=== PATIENT | female | born 1935 | race Caucasian/White ===

== ENCOUNTER 2017-05-12 18:04 | Inpatient (IN) | payer MEDICARE, BC ==
[2017-05-12] MEDS ORDERED: SODIUM CHLORIDE 0.9% 1,000 ML IV STA ×2 (18:24→18:54)
--- NOTE | 2017-05-12 18:30 | ED ---
SOB HPI - General Chief Complaint: Shortness of Breath Stated Complaint: diff breathing Time Seen by Provider: 05/12/17 18:14 Source: patient, family, RN notes reviewed, old records reviewed Mode of arrival: wheelchair Limitations: no limitations - History of Present Illness Initial Comments: This is an 82-year-old female presenting to the emergency Department chief complaint of worsening shortness of breath over the past week. Patient was recently discharged from due to acute exacerbation of heart failure. Patient reports that she was in the hospital for a few days and then back home. Patient's son reports that he wished that she would've went to a rehab. Patient reports that her feet have been swelling immensely, and has to be sitting upright at all times when she feels like she is drowning. Patient's son reports that her ejection fraction is approximately 20-15%, he is unsure. Patient has a history of diabetes, heart failure, COPD. 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 She is on Coumadin. Patient reports that she has been taking her medications as directed. - Related Data Home Medications Medication Instructions Recorded Confirmed Amiodarone [Cordarone] 200 mg PO Q12H 05/12/17 05/12/17 Docusate [Colace] 100 mg PO BID 05/12/17 05/12/17 Fluticasone/Vilanterol [Breo 1 puff INHALATION RT-DAILY 05/12/17 05/12/17 Ellipta 200-25 Mcg INH] Furosemide [Lasix] 60 mg PO BID 05/12/17 05/12/17 Insulin Glargine,Hum.rec.anlog 16 unit SQ 05/12/17 05/12/17 [Lantus Solostar] Insulin Lispro [humaLOG Kwikpen] See Protocol SQ AC-TID 05/12/17 05/12/17 Insulin Lispro [humaLOG Kwikpen] See Protocol SQ 05/12/17 05/12/17 Levothyroxine Sodium [Synthroid] 50 mcg PO DAILY 05/12/17 05/12/17 Losartan [Cozaar] 12.5 mg PO HS 05/12/17 05/12/17 PARoxetine [Paxil] 20 mg PO DAILY 05/12/17 05/12/17 Warfarin [Coumadin] 2.5 mg PO DAILY 05/12/17 05/12/17 Allergies Allergy/AdvReac Type Severity Reaction Status Date / Time No Known Allergies Allergy Verified 05/12/17 18:34 Review of Systems ROS Statement: Those systems with pertinent positive or pertinent negative responses have been documented in the HPI. ROS Other: All systems not noted in ROS Statement are negative. Past Medical History Past Medical History: Diabetes Mellitus Additional Past Medical History / Comment(s): CHF History of Any Multi-Drug Resistant Organisms: None Reported Past Surgical History: Orthopedic Surgery Past Psychological History: Anxiety Smoking Status: Never smoker Past Alcohol Use History: None Reported Past Drug Use History: None Reported General Exam - General Exam Comments Initial Comments: This is a frail 82-year-old female. Patient is alert and oriented 3. Limitations: no limitations General appearance: alert, in no apparent distress Head exam: Present: atraumatic, normocephalic, normal inspection Eye exam: Present: normal appearance, PERRL, EOMI. Absent: scleral icterus, conjunctival injection, periorbital swelling ENT exam: Present: normal exam, mucous membranes moist Neck exam: Present: normal inspection. Absent: tenderness, meningismus, lymphadenopathy Respiratory exam: Present: rales, decreased breath sounds. Absent: normal lung sounds bilaterally, respiratory distress, wheezes, rhonchi, stridor Cardiovascular Exam: Present: regular rate, normal rhythm, normal heart sounds. Absent: systolic murmur, diastolic murmur, rubs, gallop, clicks GI/Abdominal exam: Present: soft, normal bowel sounds. Absent: distended, tenderness, guarding, rebound, rigid Extremities exam: Present: normal inspection, full ROM, normal capillary refill , pedal edema (Patient has 4+ pedal edema bilaterally.). Absent: tenderness, joint swelling, calf tenderness Back exam: Present: normal inspection Neurological exam: Present: alert, oriented X3, CN II-XII intact Psychiatric exam: Present: normal affect, normal mood Skin exam: Present: warm, dry, intact, normal color. Absent: rash Course Vital Signs 05/12/17 05/12/17 05/12/17 18:07 19:16 20:58 Temperature 97.0 F L 98.9 F Pulse Rate 113 H 96 109 H Respiratory 18 19 20 Rate Blood Pressure 133/77 114/74 106/68 O2 Sat by Pulse 89 L 98 Oximetry Medical Decision Making - Medical Decision Making This is an 82-year-old female presenting to the emergency Department chief complaint of worsening shortness of breath over the past week. Patient was recently discharged from due to acute exacerbation of heart failure. Patient reports that she was in the hospital for a few days and then back home. Patient's son reports that he wished that she would've went to a rehab. Patient reports that her feet have been swelling immensely, and has to be sitting upright at all times when she feels like she is drowning. Patient has diminished lung sounds bilaterally. No significant wheezing is noted but there are some rales. Patient received IV fluids, chest x-ray EKG. EKG reveals a history of fibrillation with RVR. Patient states that she sees Dr. Juliette Valverde at [facility]. All of her tests have been done within the past few weeks and records are with him. Patient labwork was obtained at this time. Patient is supratherapeutic with her INR being 4.5. Patient shows evidence of dehydration with sodium of 128, BUN and creatinine are elevated. Patient's BNP is elevated at 12,600. Also noted leukocytosis of 14.6. Lactic acid was obtained and is 3.5. However do not want to overload the patient with fluid due to the significant heart failure. Patient was started at 50 miles per hour of normal saline. Patient was started on Lasix and Nitropaste. Her chest x-ray now shows heart failure but some signs of pneumonia. Patient was started on vancomycin, Zosyn and patient was given an initial dose of azithromycin IV. Discussed all these findings with the family and patient. Patient will be admitted. Family states that they do want her previous history obtained from her trumpet teacher. Discussed that I will not be able to get hold of them in their office this evening. They did provide a cell phone number and work number. Patient's trumpet teacher information is Dr. Lane, work number is [phone]. - Lab Data Result diagrams: 05/12/17 18:30 05/12/17 18:30 Lab Results 05/12/17 05/12/17 05/12/17 Range/Units 18:30 18:30 18:30 WBC 14.6 H (3.8-10.6) k/uL RBC 5.35 (3.80-5.40) m/uL Hgb 14.6 (11.4-16.0) gm/dL Hct 46.5 H (34.0-46.0) % MCV 86.8 (80.0-100.0) fL MCH 27.3 (25.0-35.0) pg MCHC 31.4 (31.0-37.0) g/dL RDW 15.2 (11.5-15.5) % Plt Count 200 (150-450) k/uL Neutrophils % 85 % Lymphocytes % 8 % Monocytes % 4 % Eosinophils % 0 % Basophils % 0 % Neutrophils # 12.5 H (1.3-7.7) k/uL Lymphocytes # 1.2 (1.0-4.8) k/uL Monocytes # 0.6 (0-1.0) k/uL Eosinophils # 0.0 (0-0.7) k/uL Basophils # 0.0 (0-0.2) k/uL Hypochromasia Moderate PT (9.0-12.0) sec INR (<1.2) APTT (22.0-30.0) sec Sodium 128 L (137-145) mmol/L Potassium 5.3 H (3.5-5.1) mmol/L Chloride 90 L (98-107) mmol/L Carbon Dioxide 20 L (22-30) mmol/L Anion Gap 18 mmol/L BUN 33 H (7-17) mg/dL Creatinine 1.31 H (0.52-1.04) mg/dL Est GFR (MDRD) Af Amer 47 (>60 ml/min/1.73 sqM) Est GFR (MDRD) Non-Af 39 (>60 ml/min/1.73 sqM) Glucose 273 H (74-99) mg/dL Plasma Lactic Acid Jay (0.7-2.0) mmol/L Calcium 8.9 (8.4-10.2) mg/dL Total Bilirubin 1.4 H (0.2-1.3) mg/dL AST 128 H (14-36) U/L ALT 138 H (9-52) U/L Alkaline Phosphatase 187 H (38-126) U/L Total Creatine Kinase 28 L (30-135) U/L CK-MB (CK-2) 1.8 (0.0-2.4) ng/mL CK-MB (CK-2) Rel Index 6.4 Troponin I 0.019 (0.000-0.034) ng/mL NT-Pro-B Natriuret Pep pg/mL Total Protein 7.2 (6.3-8.2) g/dL Albumin 3.5 (3.5-5.0) g/dL 05/12/17 05/12/17 05/12/17 Range/Units 18:30 18:30 19:35 WBC (3.8-10.6) k/uL RBC (3.80-5.40) m/uL Hgb (11.4-16.0) gm/dL Hct (34.0-46.0) % MCV (80.0-100.0) fL MCH (25.0-35.0) pg MCHC (31.0-37.0) g/dL RDW (11.5-15.5) % Plt Count (150-450) k/uL Neutrophils % % Lymphocytes % % Monocytes % % Eosinophils % % Basophils % % Neutrophils # (1.3-7.7) k/uL Lymphocytes # (1.0-4.8) k/uL Monocytes # (0-1.0) k/uL Eosinophils # (0-0.7) k/uL Basophils # (0-0.2) k/uL Hypochromasia PT 44.7 H (9.0-12.0) sec INR 4.5 H (<1.2) APTT 31.5 H (22.0-30.0) sec Sodium (137-145) mmol/L Potassium (3.5-5.1) mmol/L Chloride (98-107) mmol/L Carbon Dioxide (22-30) mmol/L Anion Gap mmol/L BUN (7-17) mg/dL Creatinine (0.52-1.04) mg/dL Est GFR (MDRD) Af Amer (>60 ml/min/1.73 sqM) Est GFR (MDRD) Non-Af (>60 ml/min/1.73 sqM) Glucose (74-99) mg/dL Plasma Lactic Acid Jay 3.7 H* (0.7-2.0) mmol/L Calcium (8.4-10.2) mg/dL Total Bilirubin (0.2-1.3) mg/dL AST (14-36) U/L ALT (9-52) U/L Alkaline Phosphatase (38-126) U/L Total Creatine Kinase (30-135) U/L CK-MB (CK-2) (0.0-2.4) ng/mL CK-MB (CK-2) Rel Index Troponin I (0.000-0.034) ng/mL NT-Pro-B Natriuret Pep 57883 pg/mL Total Protein (6.3-8.2) g/dL Albumin (3.5-5.0) g/dL 05/12/17 20:03 EKG shows A. fib with RVR. Nonspecific intraventricular block. Ventricular rate of 113 bpm. She restrict him 170 ms. QT QTc is 12/01/1929/589 ms. - Radiology Data Radiology results: report reviewed Small bilateral pleural effusions are noted to moderate to mild CHF. There is patchy opacity in the mid left lung which could relate to atelectasis or pneumonia. Disposition Clinical Impression: CHF (congestive heart failure), Pneumonia, Coagulopathy, Lactic acidosis, Dehydration Disposition: ADMITTED IP TO THIS [facility] Condition: Good Referrals: Nonstaff,Physician [Primary Care Provider] - 1-2 days Time of Disposition: 21:15
[2017-05-12 18:46] LABS: Basophils % (A) 0 %; CH 27.3; CHCM 31.6; Eosinophils % (A) 0 %; HCT 46.5 % (34.0-46.0); HDW 3.39; HGB 14.6 gm/dL (11.4-16.0); Hypochromasia Moderate; Luc # (Auto) 0.25; Luc % (Auto) 2; Lymphocytes # (A) 1.2 k/uL (1.0-4.8); Lymphocytes % (A) 8 %; MCH 27.3 pg (25.0-35.0); MCHC 31.4 g/dL (31.0-37.0); MCV 86.8 fL (80.0-100.0); Mean Platelet Volume 8.5; Monocytes # (A) 0.6 k/uL (0-1.0); Monocytes % (A) 4 %; Neutrophils # (A) 12.5 k/uL (1.3-7.7); Neutrophils % (A) 85 %; RBC 5.35 m/uL (3.80-5.40); RDW 15.2 % (11.5-15.5); WBC 14.6 k/uL (3.8-10.6); WBC (Perox) 13.99
[2017-05-12 18:53] LABS: Calcium 8.9 mg/dL (8.4-10.2); Potassium 5.3 mmol/L (3.5-5.1); Total Bilirubin 1.4 mg/dL (0.2-1.3); Total Protein 7.2 g/dL (6.3-8.2)
[2017-05-12] MEDS: FUROSEMIDE 10 MG/ML 4 ML VIAL IV STA (19:01)
[2017-05-12 19:02] LABS: INR 4.5 (<1.2); Partial Thromboplastin Time 31.5 sec (22.0-30.0); Prothrombin Time 44.7 sec (9.0-12.0)
--- NOTE | 2017-05-12 19:06 | XR ---
EXAMINATION TYPE: XR chest 2V DATE OF EXAM: 05/12/2017 COMPARISON: NONE HISTORY: Shortness of breath. TECHNIQUE: Frontal and lateral views of the chest are obtained. FINDINGS: There are small bilateral pleural effusions. There is dependent atelectasis. There is a pa tchy opacity at the mid left lung which could be related atelectasis or pneumonia. There is mild to m oderate pulmonary vascular congestion. Fluid is noted in the minor fissure. The cardiac silhouette is mildly enlarged. There is no pneumothorax. IMPRESSION: Small bilateral pleural effusions are noted with [id number] CHF.
[2017-05-12 19:08] LABS: Creatine Kinase MB 1.8 ng/mL (0.0-2.4); Troponin I 0.019 ng/mL (0.000-0.034)
[2017-05-12] MEDS ORDERED: NITROGLYCERIN OINT 1 INCH/GM PACKET TOPICAL STA (19:27)
[2017-05-12] MEDS ORDERED: IPRATROPIUM-ALBUTEROL 3 ML NEB INHALATION PRN (20:10)
[2017-05-12] MEDS ORDERED: AZITHROMYCIN 500 MG in SODIUM CHLORIDE 0.9% 250 ML IVPB STA (20:10)
[2017-05-12] MEDS ORDERED: PNEUMONIA PROTOCOL UTILIZED 1 EACH MISC PO PRN (20:10)
[2017-05-12] MEDS ORDERED: IV VANCOMYCIN PER PHARMACY 1 EACH MISC MISCELLANE PRN (20:14)
[2017-05-12] MEDS ORDERED: VANCOMYCIN 1,250 MG in SODIUM CHLORIDE 0.9% 250 ML IVPB STA (20:42)
[2017-05-12 23:22] LABS: Glucose,Whole Blood 212 mg/dL (75-99)
[2017-05-13] MEDS ORDERED: FUROSEMIDE 40 MG TAB PO SCH
[2017-05-13 00:01] VITALS: BMI 31.3
[2017-05-13] MEDS ORDERED: FUROSEMIDE 10 MG/ML 4 ML VIAL IV STA (00:48)
[2017-05-13] MEDS ORDERED: ALPRAZolam 0.25 MG TAB PO PRN (00:49)
[2017-05-13] MEDS ORDERED: NALOXONE 0.4 MG/ML 1 ML VIAL IV PRN (00:49)
[2017-05-13] MEDS: DOCUSATE 100 MG CAP PO SCH ×3 (01:14→21:25)
[2017-05-13] MEDS: INSULIN GLARGINE 100 UNIT/ML 10 ML VIAL SQ SCH ×2 (01:25→21:23)
[2017-05-13] MEDS: AMIODARONE 200 MG TAB PO SCH ×3 (01:25→22:48)
[2017-05-13] MEDS: PIPERACILLIN-TAZOBACTAM 3.375 GM in DEXTROSE/WATER 1 50ML.BAG IVPB SCH ×3 (01:26→16:10)
[2017-05-13 01:41] LABS: ABG Base Excess -3.7 mmol/L; ABG HCO3 19 mmol/L (21-25); ABG PCO2 24 mmHg (35-45); ABG PH 7.51 (7.35-7.45); ABG PO2 93 mmHg (83-108); ABG TCO2 20 mmol/L (19-24)
[2017-05-13 01:45] LABS: Amorphous Sediment,Urine Rare /hpf; Appearance,Urine Cloudy (Clear); Bacteria,Urine Few /hpf; Bilirubin,Urine Negative (Negative); Glucose,Urine (UA) Negative (Negative); Ketones,Urine Negative (Negative); Leukocyte Esterase,Urine Negative (Negative); Mucus,Urine Rare /hpf; Nitrite,Urine Negative (Negative); Particle Count 23727; Protein,Urine Trace (Negative); Specific Gravity,Urine 1.011 (1.001-1.035); Squamous Epithelial Cell,Urine <1 /hpf (0-4); UA Billing (MACRO vs. MICRO) MICRO; WBC,Urine 2 /hpf (0-5)
[2017-05-13] MEDS: LOSARTAN 25 MG TAB PO SCH ×2 (02:00→21:25)
[2017-05-13 07:04] LABS: INR 3.3 (<1.2); Prothrombin Time 32.5 sec (9.0-12.0)
[2017-05-13 07:21] LABS: Calcium 8.3 mg/dL (8.4-10.2); Magnesium 1.7 mg/dL (1.6-2.3); Phosphorous 4.2 mg/dL (2.5-4.5); Potassium 4.9 mmol/L (3.5-5.1)
[2017-05-13 07:31] LABS: Glucose,Whole Blood 180 mg/dL (75-99)
[2017-05-13] MEDS: FUROSEMIDE 10 MG/ML 4 ML VIAL IV SCH ×2 (07:35→16:10)
[2017-05-13] MEDS: HEPARIN SODIUM,PORCINE 5,000 UNIT/ML 1 ML VIAL SQ SCH ×2 (07:35→16:10)
[2017-05-13] MEDS: LEVOTHYROXINE 50 MCG TAB PO SCH (07:35)
--- NOTE | 2017-05-13 07:48 | XR ---
EXAMINATION TYPE: XR chest 1V DATE OF EXAM: 05/13/2017 COMPARISON: Prior chest x-ray 05/12/2017 HISTORY: Shortness of breath TECHNIQUE: Single frontal view of the chest is obtained. FINDINGS: There is mixed interstitial and airspace disease present within the lungs. No evident pneu mothorax. Blunting of the right costophrenic angle persists and heart is enlarged. Arthropathy noted in the left shoulder. IMPRESSION: Correlate for congestive heart failure.
[2017-05-13] MEDS: SYMBICORT 160-4.5 MCG INHALER INHALATION SCH (08:00)
--- NOTE | 2017-05-13 08:55 | P.CRDCN ---
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 who just was discharged from [facility] recently after she was admitted with congestive heart failure presented to the hospital complaining of progressive dyspnea. The patient describes progressive exertional dyspnea associated with severe bilateral lower extremities edema. She did not have any chest pain or discomfort. Did not have any cough or wheezing. The patient is not aware of any prior history of CAD or prior revascularization but she is known to have CHF as well as diabetes and COPD. The chest x-ray showed findings consistent with CHF. The BNP came in to be 12, 000. The EKG showed underlying atrial fibrillation which is known to the patient with wide complex QRS consistent with nonspecific interventricular conduction delay. Currently the patient is on Lasix IV. I'm going to continue that. Continue monitoring the kidney function and electrolytes. I'll obtain an echocardiogram was Doppler. And continue following up with the patient. Past Medical History Past Medical History: Atrial Fibrillation, Heart Failure, COPD, Diabetes Mellitus, Pneumonia Additional Past Medical History / Comment(s): CHF History of Any Multi-Drug Resistant Organisms: None Reported Past Surgical History: Orthopedic Surgery Past Anesthesia/Blood Transfusion Reactions: No Reported Reaction Past Psychological History: Anxiety Smoking Status: Never smoker Past Alcohol Use History: None Reported Past Drug Use History: None Reported Medications and Allergies Home Medications Medication Instructions Recorded Confirmed Type Amiodarone [Cordarone] 200 mg PO Q12H 05/12/17 05/12/17 History Docusate [Colace] 100 mg PO BID 05/12/17 05/12/17 History Fluticasone/Vilanterol [Breo 1 puff INHALATION RT-DAILY 05/12/17 05/12/17 History Ellipta 200-25 Mcg INH] Furosemide [Lasix] 60 mg PO BID 05/12/17 05/12/17 History Insulin Glargine,Hum.rec.anlog 16 unit SQ HS 05/12/17 05/12/17 History [Lantus Solostar] Insulin Lispro [humaLOG Kwikpen] See Protocol SQ AC-TID 05/12/17 05/12/17 History Insulin Lispro [humaLOG Kwikpen] See Protocol SQ HS 05/12/17 05/12/17 History Levothyroxine Sodium [Synthroid] 50 mcg PO DAILY 05/12/17 05/12/17 History Losartan [Cozaar] 12.5 mg PO HS 05/12/17 05/12/17 History PARoxetine [Paxil] 20 mg PO DAILY 05/12/17 05/12/17 History Warfarin [Coumadin] 2.5 mg PO DAILY 05/12/17 05/12/17 History Allergies Allergy/AdvReac Type Severity Reaction Status Date / Time No Known Allergies Allergy Verified 05/12/17 18:34 Physical Exam Vitals: Vital Signs Temp Pulse Pulse Resp BP BP Pulse Ox 05/13/17 07:30 89 27 H 98 05/13/17 07:00 83 24 103/74 99 05/13/17 06:30 97 25 H 103/74 98 05/13/17 06:00 88 28 H 79/57 97 05/13/17 05:30 91 15 81/58 99 05/13/17 05:00 91 16 94/57 99 05/13/17 04:30 92 21 107/66 97 05/13/17 04:00 97.6 F 99 25 H 103/72 90 L 05/13/17 03:31 25 H 05/13/17 03:00 102 H 24 81/57 98 05/13/17 02:30 98 20 81/57 98 05/13/17 02:00 106 H 30 H 101/60 98 05/13/17 01:30 105 H 25 H 100/79 98 05/13/17 01:00 96 29 H 100/79 97 05/13/17 00:30 107 H 31 H 100/79 98 05/13/17 00:00 100 31 H 100/79 99 05/12/17 23:17 74 100 05/12/17 22:52 97.6 F 105 H 25 H 100/79 98 05/12/17 21:44 98.8 F 108 H 18 95/65 98 05/12/17 20:58 109 H 20 106/68 05/12/17 19:16 98.9 F 96 19 114/74 98 05/12/17 18:07 97.0 F L 113 H 18 133/77 89 L Intake and Output 05/12/17 05/13/17 05/13/17 22:59 06:59 14:59 Intake Total 420.0 32.5 Output Total 290 50 Balance 130.0 -17.5 Intake: IV 420.0 20 Piperacillin-Tazobactam 3 50.0 .375 gm In Dextrose/Water 1 50ml.bag @ 12.5 mls/hr IVPB Q8HR ON LICENSE OF [facility] Rx#: [id number] Sodium Chloride 0.9% 1, 120 20 000 ml @ 20 mls/hr IV . Q24H STA Rx#:[id number] Vancomycin 1,250 mg In 250 Sodium Chloride 0.9% 250 ml @ 125 mls/hr IVPB ONCE STA Rx#:[id number] Intake, IV Titration 12.5 Amount Piperacillin-Tazobactam 3 12.5 .375 gm In Dextrose/Water 1 50ml.bag @ 12.5 mls/hr IVPB Q8HR ON LICENSE OF [facility] Rx#: [id number] Output: Urine 290 50 Other: Voiding Method Indwelling Catheter Weight 65.7 kg - Constitutional General appearance: no acute distress - Respiratory Respiratory: bilateral: diminished, rales - Cardiovascular Rhythm: irregularly irregular Heart sounds: normal: S1, S2 Results 05/12/17 18:30 05/13/17 06:30 Cardiac Enzymes 05/12/17 05/12/17 Range/Units 18:30 18:30 AST 128 H (14-36) U/L CK-MB (CK-2) 1.8 (0.0-2.4) ng/mL Troponin I 0.019 (0.000-0.034) ng/mL Coagulation 05/12/17 05/13/17 Range/Units 18:30 06:30 PT 44.7 H 32.5 H (9.0-12.0) sec APTT 31.5 H (22.0-30.0) sec CBC 05/12/17 Range/Units 18:30 WBC 14.6 H (3.8-10.6) k/uL RBC 5.35 (3.80-5.40) m/uL Hgb 14.6 (11.4-16.0) gm/dL Hct 46.5 H (34.0-46.0) % Plt Count 200 (150-450) k/uL Comprehensive Metabolic Panel 05/12/17 05/13/17 Range/Units 18:30 06:30 Sodium 128 L 128 L (137-145) mmol/L Potassium 5.3 H 4.9 (3.5-5.1) mmol/L Chloride 90 L 96 L (98-107) mmol/L Carbon Dioxide 20 L 20 L (22-30) mmol/L BUN 33 H 37 H (7-17) mg/dL Creatinine 1.31 H 1.26 H (0.52-1.04) mg/dL Glucose 273 H 172 H (74-99) mg/dL Calcium 8.9 8.3 L (8.4-10.2) mg/dL AST 128 H (14-36) U/L ALT 138 H (9-52) U/L Alkaline Phosphatase 187 H (38-126) U/L Total Protein 7.2 (6.3-8.2) g/dL Albumin 3.5 (3.5-5.0) g/dL Current Medications Generic Name Dose Route Start Last Admin Trade Name Freq PRN Reason Stop Dose Admin Albuterol/Ipratropium 3 ml 05/12/17 20:10 Duoneb 0.5 Mg-3 Mg/3 Ml Soln INHALATION RT-Q4H PRN shortness of breath Alprazolam 0.125 mg 05/13/17 00:49 Xanax PO Q6HR PRN Mild Anxiety Amiodarone HCl 200 mg 05/12/17 23:00 05/13/17 01:25 Cordarone PO 200 mg Q12H MALIHA Administration Budesonide/Formoterol Fumarate 2 puff 05/13/17 08:00 Symbicort 160-4.5 Mcg Inhaler INHALATION RT-BID MALIHA Docusate Sodium 100 mg 05/12/17 23:00 05/13/17 01:14 Colace PO Not Given BID MALIHA Famotidine 20 mg 05/13/17 09:00 Pepcid IV Q12HR MALIHA Furosemide 40 mg 05/13/17 08:00 05/13/17 07:35 Lasix IV 40 mg Q8HR MALIHA Administration Heparin Sodium (Porcine) 5,000 unit 05/13/17 08:00 05/13/17 07:35 Heparin SQ 5,000 unit Q8HR MALIHA Administration Sodium Chloride 1,000 mls @ 20 mls/hr 05/12/17 18:54 05/12/17 19:01 Saline 0.9% IV 05/13/17 18:53 20 mls/hr .Q24H STA Administration Piperacillin/Tazobactam/ 50 mls @ 12.5 mls/hr 05/13/17 00:00 05/13/17 07:35 Dextrose 3.375 gm/ IV Solution IVPB 05/23/17 00:01 12.5 mls/hr Q8HR MALIHA Administration Vancomycin HCl 1,250 mg/ 250 mls @ 125 mls/hr 05/13/17 10:00 Sodium Chloride IVPB 05/13/17 11:59 ONCE ONE Insulin Glargine 16 unit 05/12/17 21:00 05/13/17 01:25 Lantus SQ 16 unit HS MALIHA Administration Levothyroxine Sodium 50 mcg 05/13/17 06:30 05/13/17 07:35 Synthroid PO 50 mcg 0630 MALIHA Administration Losartan Potassium 12.5 mg 05/12/17 23:00 05/13/17 02:00 Cozaar PO Not Given HS ON LICENSE OF [facility] Miscellaneous Information 1 each 05/12/17 20:10 Pneumonia Protocol Utilized PO ONCE PRN Per Protocol Miscellaneous Information 1 each 05/12/17 20:14 Pharmacy To Dose Iv Vancomycin MISCELLANE DIRECTED PRN Per Protocol Naloxone HCl 0.2 mg 05/13/17 00:49 Narcan IV Q2M PRN Opioid Reversal Nitroglycerin 0.5 inch 05/13/17 09:00 Nitro-Bid Oint TOPICAL QID MALIHA Paroxetine HCl 20 mg 05/13/17 09:00 Paxil PO DAILY MALIHA Intake and Output 05/12/17 05/13/17 05/13/17 22:59 06:59 14:59 Intake Total 420.0 32.5 Output Total 290 50 Balance 130.0 -17.5 Intake: IV 420.0 20 Piperacillin-Tazobactam 3 50.0 .375 gm In Dextrose/Water 1 50ml.bag @ 12.5 mls/hr IVPB Q8HR MALIHA Rx#: [id number] Sodium Chloride 0.9% 1, 120 20 000 ml @ 20 mls/hr IV . Q24H STA Rx#:[id number] Vancomycin 1,250 mg In 250 Sodium Chloride 0.9% 250 ml @ 125 mls/hr IVPB ONCE STA Rx#:[id number] Intake, IV Titration 12.5 Amount Piperacillin-Tazobactam 3 12.5 .375 gm In Dextrose/Water 1 50ml.bag @ 12.5 mls/hr IVPB Q8HR ON LICENSE OF [facility] Rx#: [id number] Output: Urine 290 50 Other: Voiding Method Indwelling Catheter Weight 65.7 kg 05/12/17 18:30 05/13/17 06:30 Assessment and Plan Plan: This is a pleasant 82-year-old female patient with known CHF, chronic A. fib, and diabetes, presented to the hospital with progressive exertional dyspnea and bilateral lower extremities edema. The examination as well as a workup consistent with CHF. We'll continue the current above dose of Lasix IV. Continue monitor the urine output. Obtain an echocardiogram was Doppler and follow-up with the patient.
[2017-05-13] MEDS ORDERED: FAMOTIDINE 20 MG/2 ML VIAL IV SCH (09:00)
[2017-05-13] MEDS: PARoxetine 20 MG TAB PO SCH (09:53)
[2017-05-13] MEDS: NITROGLYCERIN OINT 1 INCH/GM PACKET TOPICAL SCH ×4 (09:56→21:28)
[2017-05-13] MEDS ORDERED: VANCOMYCIN 1,250 MG in SODIUM CHLORIDE 0.9% 250 ML IVPB ONE (10:00)
[2017-05-13 10:11] LABS: CH 27.5; HCT 40.7 % (34.0-46.0); HDW 3.43; HGB 13.4 gm/dL (11.4-16.0); Hypochromasia Slight; MCH 27.6 pg (25.0-35.0); MCV 83.7 fL (80.0-100.0); Mean Platelet Volume 10.5; Poikilocytosis Slight; RBC 4.87 m/uL (3.80-5.40); RDW 15.2 % (11.5-15.5); WBC 14.7 k/uL (3.8-10.6); WBC (Perox) 15.15
[2017-05-13 10:30] LABS: Add Differential Manual Differential
[2017-05-13 10:31] LABS: Nucleated Red Blood Cells 0 /100 WBC (0-0); Total Cells Counted 100
[2017-05-13 10:35] LABS: Target Cells Present
--- NOTE | 2017-05-13 11:35 | P.CNPUL ---
History of Present Illness Consult date: 05/13/17 Requesting physician: Sherry Szymanski Reason for consult: dyspnea, pleural effusion, other (Congestive heart failure) Chief complaint: Shortness of breath History of present illness: This is an 82-year-old female with history of congestive heart failure and presumptive underlying cardiomyopathy, patient was recently admitted to [facility] with congestive heart failure discharged only couple of days ago. Patient was supposedly compliant with all her meds including diuretics, however she presented to the ER with worsening shortness of breath, dyspnea on exertion, significant swelling in lower extremities, no chest pain, no diaphoresis, no palpitations. Chest x-ray showed evidence of congestive heart failure questionable left lower lobe underlying infiltrate, patient was noted to have significantly elevated BNP level. She was admitted, placed on diuretics , and I was asked to see her on consultation. She was already seen by cardiology, her medications were adjusted, and her echocardiogram is pending at the time of my dictation. Since admission the patient has been feeling better breathing a bit easier. Presently denies headaches, no blurred vision no dizziness. No chest pain, she has some cough, no wheezing, she is complaining of shortness of breath, no nausea no vomiting no abdominal pain no melena no hematemesis. No dysuria frequency or urgency. Patient has been complaining of significant swelling in her lower extremities. Review of Systems 14 point review of systems were obtained, please refer to pertinent positives and negatives as noted in the HPI. Past Medical History Past Medical History: Atrial Fibrillation, Heart Failure, COPD, Diabetes Mellitus, Pneumonia Additional Past Medical History / Comment(s): CHF History of Any Multi-Drug Resistant Organisms: None Reported Past Surgical History: Orthopedic Surgery Past Anesthesia/Blood Transfusion Reactions: No Reported Reaction Past Psychological History: Anxiety Smoking Status: Never smoker Past Alcohol Use History: None Reported Past Drug Use History: None Reported Medications and Allergies Home Medications Medication Instructions Recorded Confirmed Type Amiodarone [Cordarone] 200 mg PO Q12H 05/12/17 05/12/17 History Docusate [Colace] 100 mg PO BID 05/12/17 05/12/17 History Fluticasone/Vilanterol [Breo 1 puff INHALATION RT-DAILY 05/12/17 05/12/17 History Ellipta 200-25 Mcg INH] Furosemide [Lasix] 60 mg PO BID 05/12/17 05/12/17 History Insulin Glargine,Hum.rec.anlog 16 unit SQ HS 05/12/17 05/12/17 History [Lantus Solostar] Insulin Lispro [humaLOG Kwikpen] See Protocol SQ AC-TID 05/12/17 05/12/17 History Insulin Lispro [humaLOG Kwikpen] See Protocol SQ HS 05/12/17 05/12/17 History Levothyroxine Sodium [Synthroid] 50 mcg PO DAILY 05/12/17 05/12/17 History Losartan [Cozaar] 12.5 mg PO HS 05/12/17 05/12/17 History PARoxetine [Paxil] 20 mg PO DAILY 05/12/17 05/12/17 History Warfarin [Coumadin] 2.5 mg PO DAILY 05/12/17 05/12/17 History Allergies Allergy/AdvReac Type Severity Reaction Status Date / Time No Known Allergies Allergy Verified 05/12/17 18:34 Physical Exam Vitals: Vital Signs Temp Pulse Pulse Resp BP BP Pulse Ox 05/13/17 10:00 92 29 H 89/53 96 05/13/17 09:30 90 28 H 96/66 100 05/13/17 09:00 85 15 96/66 99 05/13/17 08:30 87 21 96/66 86 L 05/13/17 08:00 82 25 H 96/66 92 L 05/13/17 07:30 89 27 H 98 05/13/17 07:00 83 24 103/74 99 05/13/17 06:30 97 25 H 103/74 98 05/13/17 06:00 88 28 H 79/57 97 05/13/17 05:30 91 15 81/58 99 05/13/17 05:00 91 16 94/57 99 05/13/17 04:30 92 21 107/66 97 05/13/17 04:00 97.6 F 99 25 H 103/72 90 L 05/13/17 03:31 25 H 05/13/17 03:00 102 H 24 81/57 98 05/13/17 02:30 98 20 81/57 98 05/13/17 02:00 106 H 30 H 101/60 98 05/13/17 01:30 105 H 25 H 100/79 98 05/13/17 01:00 96 29 H 100/79 97 05/13/17 00:30 107 H 31 H 100/79 98 05/13/17 00:00 100 31 H 100/79 99 05/12/17 23:17 74 100 05/12/17 22:52 97.6 F 105 H 25 H 100/79 98 05/12/17 21:44 98.8 F 108 H 18 95/65 98 05/12/17 20:58 109 H 20 106/68 05/12/17 19:16 98.9 F 96 19 114/74 98 05/12/17 18:07 97.0 F L 113 H 18 133/77 89 L Intake and Output 05/12/17 05/13/17 05/13/17 22:59 06:59 14:59 Intake Total 420.0 55.0 Output Total 290 100 Balance 130.0 -45.0 Intake: IV 420.0 30 Piperacillin-Tazobactam 3 50.0 .375 gm In Dextrose/Water 1 50ml.bag @ 12.5 mls/hr IVPB Q8HR MALIHA Rx#: [id number] Sodium Chloride 0.9% 1, 120 30 000 ml @ 20 mls/hr IV . Q24H STA Rx#:[id number] Vancomycin 1,250 mg In 250 Sodium Chloride 0.9% 250 ml @ 125 mls/hr IVPB ONCE STA Rx#:[id number] Intake, IV Titration 25.0 Amount Piperacillin-Tazobactam 3 25.0 .375 gm In Dextrose/Water 1 50ml.bag @ 12.5 mls/hr IVPB Q8HR MALIHA Rx#: [id number] Output: Urine 290 100 Other: Voiding Method Indwelling Catheter Indwelling Catheter Weight 65.7 kg Physical Exam: Revealed an 82-year-old female in no respiratory distress. HEENT:[Neck is supple.] [No neck masses.] [No thyromegaly.] [ The patient JVD.] Chest: [Crackles at the bases noted bilaterally more so at the left base. No wheezes..] Cardiac Exam: [Irregular irregular rhythm, Normal S1 and S2, no S3 gallop, 2/6 systolic murmur throughout the precordium.] Abdomen: [Soft, nontender, no megaly, no rebound, no guarding, normal bowel sounds.] Extremities: [No clubbing, 3+ bipedal edema was noted, no cyanosis.] Neurological Exam: [No focal neurologic deficit.] Results - Laboratory Findings CBC and BMP: 05/13/17 07:06 05/13/17 06:30 ABG ABG pH 7.51 (7.35-7.45) H 05/13/17 01:27 ABG pCO2 24 mmHg (35-45) L 05/13/17 01:27 ABG pO2 93 mmHg (83-108) 05/13/17 01:27 ABG O2 Saturation 98.0 % (94-97) H 05/13/17 01:27 PT/INR, D-dimer PT 32.5 sec (9.0-12.0) H 05/13/17 06:30 INR 3.3 (<1.2) H 05/13/17 06:30 Abnormal lab findings: Abnormal Labs 05/12/17 05/12/17 05/12/17 18:30 18:30 18:30 WBC 14.6 H Hct 46.5 H Plt Count Neutrophils # 12.5 H Neutrophils # (Manual) PT INR APTT ABG pH ABG pCO2 ABG HCO3 ABG O2 Saturation Sodium 128 L Potassium 5.3 H Chloride 90 L Carbon Dioxide 20 L BUN 33 H Creatinine 1.31 H Glucose 273 H POC Glucose (mg/dL) Plasma Lactic Acid Jay Calcium Total Bilirubin 1.4 H AST 128 H ALT 138 H Alkaline Phosphatase 187 H Total Creatine Kinase 28 L Urine Appearance Urine Protein Amorphous Sediment Urine Bacteria Hyaline Casts Urine Mucus 05/12/17 05/12/17 05/12/17 18:30 19:35 23:18 WBC Hct Plt Count Neutrophils # Neutrophils # (Manual) PT 44.7 H INR 4.5 H APTT 31.5 H ABG pH ABG pCO2 ABG HCO3 ABG O2 Saturation Sodium Potassium Chloride Carbon Dioxide BUN Creatinine Glucose POC Glucose (mg/dL) 212 H Plasma Lactic Acid Jay 3.7 H* Calcium Total Bilirubin AST ALT Alkaline Phosphatase Total Creatine Kinase Urine Appearance Urine Protein Amorphous Sediment Urine Bacteria Hyaline Casts Urine Mucus 05/12/17 05/13/17 05/13/17 23:34 01:14 01:27 WBC Hct Plt Count Neutrophils # Neutrophils # (Manual) PT INR APTT ABG pH 7.51 H ABG pCO2 24 L ABG HCO3 19 L ABG O2 Saturation 98.0 H Sodium Potassium Chloride Carbon Dioxide BUN Creatinine Glucose POC Glucose (mg/dL) Plasma Lactic Acid Jay 4.9 H* Calcium Total Bilirubin AST ALT Alkaline Phosphatase Total Creatine Kinase Urine Appearance Cloudy H Urine Protein Trace H Amorphous Sediment Rare H Urine Bacteria Few H Hyaline Casts 50 H Urine Mucus Rare H 05/13/17 05/13/17 05/13/17 06:30 06:30 07:06 WBC 14.7 H Hct Plt Count 135 L Neutrophils # Neutrophils # (Manual) 12.94 H PT 32.5 H INR 3.3 H APTT ABG pH ABG pCO2 ABG HCO3 ABG O2 Saturation Sodium 128 L Potassium Chloride 96 L Carbon Dioxide 20 L BUN 37 H Creatinine 1.26 H Glucose 172 H POC Glucose (mg/dL) Plasma Lactic Acid Jay Calcium 8.3 L Total Bilirubin AST ALT Alkaline Phosphatase Total Creatine Kinase Urine Appearance Urine Protein Amorphous Sediment Urine Bacteria Hyaline Casts Urine Mucus 05/13/17 07:29 WBC Hct Plt Count Neutrophils # Neutrophils # (Manual) PT INR APTT ABG pH ABG pCO2 ABG HCO3 ABG O2 Saturation Sodium Potassium Chloride Carbon Dioxide BUN Creatinine Glucose POC Glucose (mg/dL) 180 H Plasma Lactic Acid Jay Calcium Total Bilirubin AST ALT Alkaline Phosphatase Total Creatine Kinase Urine Appearance Urine Protein Amorphous Sediment Urine Bacteria Hyaline Casts Urine Mucus - Diagnostic Findings Chest x-ray: image reviewed (Chest x-ray is consistent with congestive heart failure, however there is mixed interstitial and airspace disease present specially in the left lower lobe area, possibility of underlying infiltrate is not entirely ruled out.) Assessment and Plan Plan: Impression: 1 acute congestive heart failure, most likely secondary to systolic dysfunction , and secondary to chronic atrial fibrillation. Her congestive heart failure is biventricular showing mostly left-sided and right-sided failure based on the presentation. 2 chronic atrial fibrillation 3 history of type 2 diabetes 4 left lower lobe pneumonia is not entirely ruled out, most likely nosocomial in nature since the patient was cleaned at [facility] admitted for congestive heart failure. Patient is empirically on antibiotics. 5 history of chronic obstructive pulmonary disease, severity of which is not clear, this will need to be addressed on an outpatient basis. In the meantime we'll continue bronchodilators. Recommendation: I fully agree with the present treatment plan including diaphoresis, bronchodilators, antibiotics, we'll continue to follow. Follow-up chest x-ray and labs on a daily basis while in the intensive care unit. Time with Patient: Greater than 30
--- NOTE | 2017-05-13 12:50 | ECHOF ---
Referral Reason:chf MEASUREMENTS -------- HEIGHT: 144.8 cm WEIGHT: 65.3 kg BP: 89/53 RVIDd: 2.6 cm (< 3.3) IVSd: 0.9 cm (0.6 - 1.1) LVIDd: 4.6 cm (3.9 - 5.3) LVPWd: 1.0 cm (0.6 - 1.1) IVSs: 1.2 cm LVIDs: 3.9 cm LVPWs: 1.2 cm LAESV Index (A-L): 56.67 ml/m Ao Diam: 3.1 cm (2.0 - 3.7) AV Cusp: 1.4 cm (1.5 - 2.6) LA Diam: 4.3 cm (2.7 - 3.8) RAP: 5.00 mmHg RVSP: 43.53 mmHg FINDINGS -------- Atrial fibrillation. This was a technically adequate study. The left ventricle is moderately dilated. Overall left ventricular systolic function is severely impaired with, an EF between 20 - 25 %. The right ventricle is normal in size and function. LA is severely dilated >40 ml/m2 RA appears enlarged. 1.5mg of Definity was utilized for enhancement of images Aortic valve is trileaflet and is mildly thickened. Trace to mild aortic regurgitation. There is no evidence of aortic stenosis. The mitral valve leaflets are mildly thickened. Moderate mitral annular calcification present. Mild mitral stenosis. Moderate to severe tricuspid regurgitation present. There is mild pulmonary hypertension. The right ventricular systolic pressure, as measured by Doppler, is 43.53mmHg. Trace/mild (physiologic) pulmonic regurgitation. The aortic root size is normal. Normal inferior vena cava with normal inspiratory collapse consistent with estimated right atrial pressure of 5 mmHg. The pericardium is normal. There is no pericardial effusion. CONCLUSIONS -------- 1. Atrial fibrillation. 2. The mitral valve leaflets are mildly thickened. 3. Moderate mitral annular calcification present. 4. Mild mitral stenosis. 5. Moderate to severe tricuspid regurgitation present. 6. There is mild pulmonary hypertension. 7. The right ventricular systolic pressure, as measured by Doppler, is 43.53mmHg. 8. Trace/mild (physiologic) pulmonic regurgitation. 9. The aortic root size is normal. 10. There is no pericardial effusion. 11. This was a technically adequate study. 12. The left ventricle is moderately dilated. 13. Overall left ventricular systolic function is severely impaired with, an EF between 20 - 25 %. 14. LA is severely dilated >40 ml/m2 15. RA appears enlarged. 16. 1.5mg of Definity was utilized for enhancement of images 17. Aortic valve is trileaflet and is mildly thickened. 18. Trace to mild aortic regurgitation. FILM OR VIDEOTAPE EDITOR: Hector Clark RDCS
[2017-05-13 16:55] LABS: Glucose,Whole Blood 155 mg/dL (75-99)
[2017-05-13] MEDS ORDERED: FUROSEMIDE 10 MG/ML 10 ML VIAL IV STA (17:29)
[2017-05-13] MEDS: FUROSEMIDE 10 MG/ML 4 ML VIAL IV STA (17:33)
[2017-05-13 21:12] LABS: Glucose,Whole Blood 169 mg/dL (75-99)
--- NOTE | 2017-05-13 23:17 | P.HPIM ---
History of Present Illness H&P Date: 05/13/17 Chief Complaint: Shortness of breath This is an 82-year-old female with history of congestive heart failure and presumptive underlying cardiomyopathy, patient was recently admitted to [facility] with congestive heart failure discharged only couple of days ago. Patient was supposedly compliant with all her meds including diuretics, however she presented to the ER with worsening shortness of breath, dyspnea on exertion, significant swelling in lower extremities, no chest pain, no diaphoresis, no palpitations. Chest x-ray showed evidence of congestive heart failure questionable left lower lobe underlying infiltrate, patient was noted to have significantly elevated BNP level. Since admission the patient has been feeling better breathing a bit easier with IV diuretics and negative balance. Presently denies headaches, no blurred vision no dizziness. No chest pain, she has some cough, no wheezing, she is complaining of shortness of breath, no nausea no vomiting no abdominal pain no melena no hematemesis. No dysuria frequency or urgency. Review of Systems 14 point review of systems were obtained, please refer to pertinent positives and negatives as noted in the HPI. Past Medical History Past Medical History: Atrial Fibrillation, Heart Failure, COPD, Diabetes Mellitus, Pneumonia Additional Past Medical History / Comment(s): CHF History of Any Multi-Drug Resistant Organisms: None Reported Past Surgical History: Orthopedic Surgery Past Anesthesia/Blood Transfusion Reactions: No Reported Reaction Past Psychological History: Anxiety Smoking Status: Never smoker Past Alcohol Use History: None Reported Past Drug Use History: None Reported Medications and Allergies Home Medications Medication Instructions Recorded Confirmed Type Amiodarone [Cordarone] 200 mg PO Q12H 05/12/17 05/12/17 History Docusate [Colace] 100 mg PO BID 05/12/17 05/12/17 History Fluticasone/Vilanterol [Breo 1 puff INHALATION RT-DAILY 05/12/17 05/12/17 History Ellipta 200-25 Mcg INH] Furosemide [Lasix] 60 mg PO BID 05/12/17 05/12/17 History Insulin Glargine,Hum.rec.anlog 16 unit SQ HS 05/12/17 05/12/17 History [Lantus Solostar] Insulin Lispro [humaLOG Kwikpen] See Protocol SQ AC-TID 05/12/17 05/12/17 History Insulin Lispro [humaLOG Kwikpen] See Protocol SQ HS 05/12/17 05/12/17 History Levothyroxine Sodium [Synthroid] 50 mcg PO DAILY 05/12/17 05/12/17 History Losartan [Cozaar] 12.5 mg PO HS 05/12/17 05/12/17 History PARoxetine [Paxil] 20 mg PO DAILY 05/12/17 05/12/17 History Warfarin [Coumadin] 2.5 mg PO DAILY 05/12/17 05/12/17 History Allergies Allergy/AdvReac Type Severity Reaction Status Date / Time No Known Allergies Allergy Verified 05/12/17 18:34 Physical Exam Vitals: Vital Signs Temp Pulse Pulse Resp BP BP Pulse Ox 05/13/17 20:00 98.4 F 94 24 121/77 100 05/13/17 17:20 99 05/13/17 17:01 94 05/13/17 16:00 97.9 F 87 24 119/80 94 L 05/13/17 15:00 80 23 119/80 100 05/13/17 14:00 87 30 H 95/65 96 05/13/17 13:00 76 27 H 95/65 95 05/13/17 12:30 77 16 87/63 99 05/13/17 12:00 97.6 F 78 18 87/63 100 05/13/17 11:30 85 18 103/77 98 05/13/17 11:00 83 24 103/77 96 05/13/17 10:30 89 21 89/53 98 05/13/17 10:00 92 29 H 89/53 96 05/13/17 09:30 90 28 H 96/66 100 05/13/17 09:00 85 15 96/66 99 05/13/17 08:30 87 21 96/66 86 L 05/13/17 08:00 82 25 H 96/66 92 L 05/13/17 07:30 89 27 H 98 05/13/17 07:00 83 24 103/74 99 05/13/17 06:30 97 25 H 103/74 98 05/13/17 06:00 88 28 H 79/57 97 05/13/17 05:30 91 15 81/58 99 05/13/17 05:00 91 16 94/57 99 05/13/17 04:30 92 21 107/66 97 05/13/17 04:00 97.6 F 99 25 H 103/72 90 L 05/13/17 03:31 25 H 05/13/17 03:00 102 H 24 81/57 98 05/13/17 02:30 98 20 81/57 98 05/13/17 02:00 106 H 30 H 101/60 98 05/13/17 01:30 105 H 25 H 100/79 98 05/13/17 01:00 96 29 H 100/79 97 05/13/17 00:30 107 H 31 H 100/79 98 05/13/17 00:00 100 31 H 100/79 99 05/12/17 23:17 74 100 05/12/17 22:52 97.6 F 105 H 25 H 100/79 98 05/12/17 21:44 98.8 F 108 H 18 95/65 98 Intake and Output 05/13/17 05/13/17 05/13/17 06:59 14:59 22:59 Intake Total 420.0 380.0 72.5 Output Total 290 535 485 Balance 130.0 -155.0 -412.5 Intake: IV 420.0 80 60 Piperacillin-Tazobactam 3 50.0 .375 gm In Dextrose/Water 1 50ml.bag @ 12.5 mls/hr IVPB Q8HR MALIHA Rx#: [id number] Sodium Chloride 0.9% 1, 120 80 60 000 ml @ 20 mls/hr IV . Q24H STA Rx#:[id number] Vancomycin 1,250 mg In 250 Sodium Chloride 0.9% 250 ml @ 125 mls/hr IVPB ONCE STA Rx#:[id number] Intake, IV Titration 300.0 12.5 Amount Piperacillin-Tazobactam 3 50.0 12.5 .375 gm In Dextrose/Water 1 50ml.bag @ 12.5 mls/hr IVPB Q8HR MALIHA Rx#: [id number] Vancomycin 1,250 mg In 250 Sodium Chloride 0.9% 250 ml @ 125 mls/hr IVPB ONCE ONE Rx#:[id number] Output: Urine 290 535 485 Other: Voiding Method Indwelling Catheter Indwelling Catheter Indwelling Catheter PHYSICAL EXAMINATION: Patient is lying in the bed comfortably, no acute distress , awake alert and oriented.. HEENT: Normocephalic. Neck is supple. Pupils reactive. Nostrils clear. Oral cavity is moist. Ears reveal no drainage. Neck reveals no JVD, carotid bruits, or thyromegaly. CHEST EXAMINATION: Trachea is central. Symmetrical expansion. Bilateral crackles positive basally. No wheezing CARDIAC: Normal S1, S2 with no gallops. Irregularly irregular pulse. Systolic murmur positive ABDOMEN: Soft. Bowel sounds normal. No organomegaly. No abdominal bruits. Extremities 3+ bilateral pedal edema. Neurologically awake, alert, oriented x3 with well-coordinated movements. Results CBC & Chem 7: 05/13/17 07:06 05/13/17 06:30 Labs: Abnormal Lab Results - Last 24 Hours (Table) 05/12/17 05/12/17 05/13/17 Range/Units 23:18 23:34 01:14 WBC (3.8-10.6) k/uL Plt Count (150-450) k/uL Neutrophils # (Manual) (1.3-7.7) k/uL PT (9.0-12.0) sec INR (<1.2) ABG pH (7.35-7.45) ABG pCO2 (35-45) mmHg ABG HCO3 (21-25) mmol/L ABG O2 Saturation (94-97) % Sodium (137-145) mmol/L Chloride (98-107) mmol/L Carbon Dioxide (22-30) mmol/L BUN (7-17) mg/dL Creatinine (0.52-1.04) mg/dL Glucose (74-99) mg/dL POC Glucose (mg/dL) 212 H (75-99) mg/dL Plasma Lactic Acid Jay 4.9 H* (0.7-2.0) mmol/L Calcium (8.4-10.2) mg/dL Urine Appearance Cloudy H (Clear) Urine Protein Trace H (Negative) Amorphous Sediment Rare H (None) /hpf Urine Bacteria Few H (None) /hpf Hyaline Casts 50 H (0-2) /lpf Urine Mucus Rare H (None) /hpf 05/13/17 05/13/17 05/13/17 Range/Units 01:27 06:30 06:30 WBC (3.8-10.6) k/uL Plt Count (150-450) k/uL Neutrophils # (Manual) (1.3-7.7) k/uL PT 32.5 H (9.0-12.0) sec INR 3.3 H (<1.2) ABG pH 7.51 H (7.35-7.45) ABG pCO2 24 L (35-45) mmHg ABG HCO3 19 L (21-25) mmol/L ABG O2 Saturation 98.0 H (94-97) % Sodium 128 L (137-145) mmol/L Chloride 96 L (98-107) mmol/L Carbon Dioxide 20 L (22-30) mmol/L BUN 37 H (7-17) mg/dL Creatinine 1.26 H (0.52-1.04) mg/dL Glucose 172 H (74-99) mg/dL POC Glucose (mg/dL) (75-99) mg/dL Plasma Lactic Acid Jay (0.7-2.0) mmol/L Calcium 8.3 L (8.4-10.2) mg/dL Urine Appearance (Clear) Urine Protein (Negative) Amorphous Sediment (None) /hpf Urine Bacteria (None) /hpf Hyaline Casts (0-2) /lpf Urine Mucus (None) /hpf 05/13/17 05/13/17 05/13/17 Range/Units 07:06 07:29 16:54 WBC 14.7 H (3.8-10.6) k/uL Plt Count 135 L (150-450) k/uL Neutrophils # (Manual) 12.94 H (1.3-7.7) k/uL PT (9.0-12.0) sec INR (<1.2) ABG pH (7.35-7.45) ABG pCO2 (35-45) mmHg ABG HCO3 (21-25) mmol/L ABG O2 Saturation (94-97) % Sodium (137-145) mmol/L Chloride (98-107) mmol/L Carbon Dioxide (22-30) mmol/L BUN (7-17) mg/dL Creatinine (0.52-1.04) mg/dL Glucose (74-99) mg/dL POC Glucose (mg/dL) 180 H 155 H (75-99) mg/dL Plasma Lactic Acid Jay (0.7-2.0) mmol/L Calcium (8.4-10.2) mg/dL Urine Appearance (Clear) Urine Protein (Negative) Amorphous Sediment (None) /hpf Urine Bacteria (None) /hpf Hyaline Casts (0-2) /lpf Urine Mucus (None) /hpf 05/13/17 Range/Units 21:09 WBC (3.8-10.6) k/uL Plt Count (150-450) k/uL Neutrophils # (Manual) (1.3-7.7) k/uL PT (9.0-12.0) sec INR (<1.2) ABG pH (7.35-7.45) ABG pCO2 (35-45) mmHg ABG HCO3 (21-25) mmol/L ABG O2 Saturation (94-97) % Sodium (137-145) mmol/L Chloride (98-107) mmol/L Carbon Dioxide (22-30) mmol/L BUN (7-17) mg/dL Creatinine (0.52-1.04) mg/dL Glucose (74-99) mg/dL POC Glucose (mg/dL) 169 H (75-99) mg/dL Plasma Lactic Acid Jay (0.7-2.0) mmol/L Calcium (8.4-10.2) mg/dL Urine Appearance (Clear) Urine Protein (Negative) Amorphous Sediment (None) /hpf Urine Bacteria (None) /hpf Hyaline Casts (0-2) /lpf Urine Mucus (None) /hpf Microbiology - Last 24 Hours (Table) 05/12/17 18:30 Blood Culture - Preliminary Blood No Growth after 24 hours 05/13/17 01:14 Urine Culture - Preliminary Urine,Catheterized Thrombosis Risk Factor Assmnt - DVT/VTE Prophylaxis DVT/VTE Prophylaxis: Pharmacologic Prophylaxis ordered - Choose All That Apply Each Factor Represents 1 point: Abnormal pulmonary function (COPD), Medical pt on bed rest, Obesity (BMI >25), Swollen legs (current) Other Risk Factors: Yes Each Risk Factor Represents 3 Points: Age 75 years or older Thrombosis Risk Factor Assessment Total Risk Factor Score: 7 Thrombosis Risk Factor Assessment Level: High Risk Assessment and Plan Plan: 1 acute congestive heart failure, most likely secondary to acute on chronic CHF with systolic dysfunction. Ejection fraction unknown at this time. Her congestive heart failure is biventricular showing mostly left-sided and right- sided failure based on the presentation 2 chronic atrial fibrillation. On anticoagulant with Coumadin. INR 3.3 3 history of type 2 diabetes 4 left lower lobe pneumonia with sepsis.. Possible hospital-acquired with admission to [facility] admitted for congestive heart failure recently. Patient is empirically on antibiotics. 5 history of chronic obstructive pulmonary disease 6 Hypervolemic hyponatremia with sodium level of 128 7 lactic acidosis. Improved with hydration bolus Plan: Patient will be continued on IV Lasix and breathing treatments and follow closely. 2-D echocardiogram was ordered. Cardiology and pulmonary is following this patient. Continue the Coumadin dosing. Prognosis is guarded. Hydration cautiously due to CHF. Time with Patient: Greater than 30
[2017-05-14] MEDS: HEPARIN SODIUM,PORCINE 5,000 UNIT/ML 1 ML VIAL SQ SCH ×3 (00:31→17:40)
[2017-05-14] MEDS: FUROSEMIDE 10 MG/ML 4 ML VIAL IV SCH ×3 (00:31→17:40)
[2017-05-14] MEDS: PIPERACILLIN-TAZOBACTAM 3.375 GM in DEXTROSE/WATER 1 50ML.BAG IVPB SCH ×3 (00:31→18:28)
[2017-05-14 05:07] LABS: Basophils % (A) 0 %; CH 27.4; CHCM 32.9; Eosinophils % (A) 0 %; HCT 41.7 % (34.0-46.0); HDW 3.59; HGB 13.8 gm/dL (11.4-16.0); Hypochromasia Slight; Luc # (Auto) 0.18; Luc % (Auto) 1; Lymphocytes # (A) 0.9 k/uL (1.0-4.8); Lymphocytes % (A) 6 %; MCH 27.6 pg (25.0-35.0); MCHC 33.1 g/dL (31.0-37.0); MCV 83.6 fL (80.0-100.0); Mean Platelet Volume 8.8; Monocytes # (A) 0.5 k/uL (0-1.0); Monocytes % (A) 4 %; Neutrophils # (A) 12.1 k/uL (1.3-7.7); Neutrophils % (A) 88 %; Poikilocytosis Slight; RBC 4.98 m/uL (3.80-5.40); RDW 15.1 % (11.5-15.5); WBC 13.7 k/uL (3.8-10.6); WBC (Perox) 13.16
[2017-05-14 05:12] LABS: INR 3.5 (<1.2); Prothrombin Time 34.6 sec (9.0-12.0)
[2017-05-14] MEDS: LEVOTHYROXINE 50 MCG TAB PO SCH (06:05)
[2017-05-14 07:13] LABS: Anion Gap 10 mmol/L; Blood Urea Nitrogen 29 mg/dL (7-17); Calcium 8.1 mg/dL (8.4-10.2); Carbon Dioxide 29 mmol/L (22-30); Chloride 95 mmol/L (98-107); Glucose 67 mg/dL (74-99); Magnesium 1.5 mg/dL (1.6-2.3); Non-African American GFR(MDRD) 54 (>60 ml/min/1.73 sqM); Phosphorous 3.5 mg/dL (2.5-4.5); Potassium 3.5 mmol/L (3.5-5.1); Sodium 134 mmol/L (137-145)
[2017-05-14 07:23] LABS: Glucose,Whole Blood 106 mg/dL (75-99)
[2017-05-14] MEDS ORDERED: Potassium Replacement Protocol 1 EACH MISC MISCELLANE PRN (07:25)
[2017-05-14] MEDS ORDERED: Magnesium Replacement Protocol 1 EACH MISC MISCELLANE PRN (07:25)
--- NOTE | 2017-05-14 07:59 | XR ---
EXAMINATION TYPE: XR chest 1V DATE OF EXAM: 05/14/2017 COMPARISON: Prior chest x-ray 05/13/2017 HISTORY: Shortness of breath TECHNIQUE: Single frontal view of the chest is obtained. FINDINGS: Similar findings, there is mixed interstitial and airspace disease, the heart remains enla rged. There is blunting of the right costophrenic angle, patient is rotated. No evident pneumothorax. IMPRESSION: Correlate for congestive heart failure, pneumonia not excluded. There may be associated pleural effusion.
[2017-05-14] MEDS: MAGNESIUM SULFATE-D5W PMX 1 GM in DEXTROSE/WATER 1 100ML.BAG IVPB SCH ×2 (08:09→09:47)
[2017-05-14] MEDS: POTASSIUM CHLORIDE ER 20 MEQ TAB.ER PO SCH ×2 (08:15→09:48)
[2017-05-14] MEDS: DOCUSATE 100 MG CAP PO SCH (08:15)
[2017-05-14] MEDS: PARoxetine 20 MG TAB PO SCH (08:16)
--- NOTE | 2017-05-14 08:44 | P.PN ---
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 The patient describes progressive exertional dyspnea associated with severe bilateral lower extremities edema. She did not have any chest pain or discomfort. Did not have any cough or wheezing. The chest x-ray showed findings consistent with CHF. The BNP came in to be 12, 000. The EKG showed underlying atrial fibrillation which is known to the patient with wide complex QRS consistent with nonspecific interventricular conduction delay. She underwent an echocardiogram which showed severe cardiomyopathy with an ejection fraction of 20% was moderate to severe tricuspid regurgitation and moderate pulmonary hypertension. Clinically the patient is feeling better today. She is sitting in the chair. Does not look in any pain or distress. She has been diuresing very well on the current dose of Lasix which is 40 mg IV 3 times a day. I am going to add metoprolol as well as Aldactone to the current medical treatment in view of the severe cardiomyopathy. We'll continue following up with her. Objective - Vital Signs Vital signs: Vital Signs Temp 98.2 F 05/14/17 08:00 Pulse 83 05/14/17 08:00 Resp 20 05/14/17 08:00 BP 144/70 05/14/17 08:00 Pulse Ox 93 L 05/14/17 08:00 Intake & Output 05/13/17 05/14/17 05/14/17 18:59 06:59 18:59 Intake Total 412.5 90 Output Total 670 1695 75 Balance -257.5 -1605 -75 Intake: IV 100 40 Sodium Chloride 0.9% 1, 100 40 000 ml @ 20 mls/hr IV . Q24H [facility] Rx#:[id number] Intake, IV Titration 312.5 50 Amount Piperacillin-Tazobactam 3 62.5 50 .375 gm In Dextrose/Water 1 50ml.bag @ 12.5 mls/hr IVPB Q8HR [facility] Rx#: [id number] Vancomycin 1,250 mg In 250 Sodium Chloride 0.9% 250 ml @ 125 mls/hr IVPB ONCE ONE Rx#:[id number] Output: Urine 670 1695 75 Other: Voiding Method Indwelling Catheter Indwelling Catheter Indwelling Catheter - Constitutional General appearance: Present: no acute distress - Respiratory Respiratory: bilateral: rales - Cardiovascular Rhythm: irregularly irregular Heart sounds: normal: S1, S2 Abnormal Heart Sounds: Present: systolic murmur - Labs CBC & Chem 7: 05/14/17 04:31 05/14/17 06:30 Labs: Abnormal Lab Results - Last 24 Hours (Table) 05/13/17 05/13/17 05/13/17 Range/Units 07:06 16:54 21:09 WBC 14.7 H (3.8-10.6) k/uL Plt Count 135 L (150-450) k/uL Neutrophils # (1.3-7.7) k/uL Neutrophils # (Manual) 12.94 H (1.3-7.7) k/uL Lymphocytes # (1.0-4.8) k/uL PT (9.0-12.0) sec INR (<1.2) Sodium (137-145) mmol/L Chloride (98-107) mmol/L BUN (7-17) mg/dL Glucose (74-99) mg/dL POC Glucose (mg/dL) 155 H 169 H (75-99) mg/dL Calcium (8.4-10.2) mg/dL Magnesium (1.6-2.3) mg/dL 05/14/17 05/14/17 05/14/17 Range/Units 04:31 04:31 06:30 WBC 13.7 H (3.8-10.6) k/uL Plt Count (150-450) k/uL Neutrophils # 12.1 H (1.3-7.7) k/uL Neutrophils # (Manual) (1.3-7.7) k/uL Lymphocytes # 0.9 L (1.0-4.8) k/uL PT 34.6 H (9.0-12.0) sec INR 3.5 H (<1.2) Sodium 134 L (137-145) mmol/L Chloride 95 L (98-107) mmol/L BUN 29 H (7-17) mg/dL Glucose 67 L (74-99) mg/dL POC Glucose (mg/dL) (75-99) mg/dL Calcium 8.1 L (8.4-10.2) mg/dL Magnesium 1.5 L (1.6-2.3) mg/dL 05/14/17 Range/Units 07:22 WBC (3.8-10.6) k/uL Plt Count (150-450) k/uL Neutrophils # (1.3-7.7) k/uL Neutrophils # (Manual) (1.3-7.7) k/uL Lymphocytes # (1.0-4.8) k/uL PT (9.0-12.0) sec INR (<1.2) Sodium (137-145) mmol/L Chloride (98-107) mmol/L BUN (7-17) mg/dL Glucose (74-99) mg/dL POC Glucose (mg/dL) 106 H (75-99) mg/dL Calcium (8.4-10.2) mg/dL Magnesium (1.6-2.3) mg/dL Microbiology - Last 24 Hours (Table) 05/12/17 18:30 Blood Culture - Preliminary Blood No Growth after 24 hours 05/13/17 01:14 Urine Culture - Preliminary Urine,Catheterized Assessment and Plan Plan: This is a pleasant 82-year-old female patient with known CHF, chronic A. fib, and diabetes, presented to the hospital with progressive exertional dyspnea and bilateral lower extremities edema. The examination as well as a workup consistent with CHF. We'll continue the current above dose of Lasix IV. Continue monitor the urine output. Add metoprolol and Aldactone
[2017-05-14] MEDS ORDERED: SPIRONOLACTONE 25 MG TAB PO SCH (09:00)
[2017-05-14] MEDS ORDERED: METOPROLOL TARTRATE 12.5 MG TAB PO SCH (09:00)
[2017-05-14] MEDS ORDERED: FAMOTIDINE 20 MG/2 ML VIAL IV SCH (09:00)
[2017-05-14] MEDS: NITROGLYCERIN OINT 1 INCH/GM PACKET TOPICAL SCH ×3 (09:48→18:28)
--- NOTE | 2017-05-14 10:34 | P.PN ---
Subjective Principal diagnosis: Acute systolic congestive heart failure This is an 82-year-old female with history of congestive heart failure and presumptive underlying cardiomyopathy, patient was recently admitted to [facility] with congestive heart failure discharged only couple of days ago. Patient was supposedly compliant with all her meds including diuretics, however she presented to the ER with worsening shortness of breath, dyspnea on exertion, significant swelling in lower extremities, no chest pain, no diaphoresis, no palpitations. Chest x-ray showed evidence of congestive heart failure questionable left lower lobe underlying infiltrate, patient was noted to have significantly elevated BNP level. She was admitted, placed on diuretics , and I was asked to see her on consultation. She was already seen by cardiology, her medications were adjusted, and her echocardiogram is pending at the time of my dictation. Since admission the patient has been feeling better breathing a bit easier. Presently denies headaches, no blurred vision no dizziness. No chest pain, she has some cough, no wheezing, she is complaining of shortness of breath, no nausea no vomiting no abdominal pain no melena no hematemesis. No dysuria frequency or urgency. Patient has been complaining of significant swelling in her lower extremities. Patient was reevaluated today on 05/14/2017, remains in the ICU, less shortness of breath noted, no chest pain, no palpitations, no nausea no vomiting no abdominal pain. Chest x-ray continues to show evidence of pulmonary edema. Possibility of underlying infiltrate is not entirely ruled out. Patient was placed on BiPAP yesterday but she is back now on nasal cannula. Continues to have significant swelling in her lower extremities. Echocardiogram showed severe LV dysfunction, ejection fraction is 20-25%. There is also evidence of mild pulmonary hypertension, mild mitral stenosis. Labs were reviewed relatively normal electrolytes are normal renal profile and the relatively normal CBC except for WBC count of 15.7 INR is 3.5. Objective - Vital Signs Vital signs: Vital Signs Temp 98.2 F 05/14/17 08:00 Pulse 83 05/14/17 08:00 Resp 20 05/14/17 08:00 BP 144/70 05/14/17 08:00 Pulse Ox 93 L 05/14/17 08:00 Intake & Output 05/13/17 05/14/17 05/14/17 18:59 06:59 18:59 Intake Total 412.5 90 Output Total 670 1695 75 Balance -257.5 -1605 -75 Weight 65.7 kg Intake: IV 100 40 Sodium Chloride 0.9% 1, 100 40 000 ml @ 20 mls/hr IV . Q24H [facility] Rx#:[id number] Intake, IV Titration 312.5 50 Amount Piperacillin-Tazobactam 3 62.5 50 .375 gm In Dextrose/Water 1 50ml.bag @ 12.5 mls/hr IVPB Q8HR [facility] Rx#: [id number] Vancomycin 1,250 mg In 250 Sodium Chloride 0.9% 250 ml @ 125 mls/hr IVPB ONCE ONE Rx#:[id number] Output: Urine 670 1695 75 Other: Voiding Method Indwelling Catheter Indwelling Catheter Indwelling Catheter - Exam Physical Exam: Revealed an 82-year-old female in no respiratory distress. HEENT:[Neck is supple.] [No neck masses.] [No thyromegaly.] [ The patient JVD.] Chest: [Crackles at the bases noted bilaterally more so at the left base. No wheezes..] Cardiac Exam: [Irregular irregular rhythm, Normal S1 and S2, no S3 gallop, 2/6 systolic murmur throughout the precordium.] Abdomen: [Soft, nontender, no megaly, no rebound, no guarding, normal bowel sounds.] Extremities: [No clubbing, 2+ bipedal edema was noted, no cyanosis.] Neurological Exam: [No focal neurologic deficit.] - Labs CBC & Chem 7: 05/14/17 04:31 05/14/17 06:30 Labs: Abnormal Lab Results - Last 24 Hours (Table) 05/13/17 05/13/17 05/13/17 Range/Units 07:06 16:54 21:09 WBC (3.8-10.6) k/uL Neutrophils # (1.3-7.7) k/uL Neutrophils # (Manual) 12.94 H (1.3-7.7) k/uL Lymphocytes # (1.0-4.8) k/uL PT (9.0-12.0) sec INR (<1.2) Sodium (137-145) mmol/L Chloride (98-107) mmol/L BUN (7-17) mg/dL Glucose (74-99) mg/dL POC Glucose (mg/dL) 155 H 169 H (75-99) mg/dL Calcium (8.4-10.2) mg/dL Magnesium (1.6-2.3) mg/dL 05/14/17 05/14/17 05/14/17 Range/Units 04:31 04:31 06:30 WBC 13.7 H (3.8-10.6) k/uL Neutrophils # 12.1 H (1.3-7.7) k/uL Neutrophils # (Manual) (1.3-7.7) k/uL Lymphocytes # 0.9 L (1.0-4.8) k/uL PT 34.6 H (9.0-12.0) sec INR 3.5 H (<1.2) Sodium 134 L (137-145) mmol/L Chloride 95 L (98-107) mmol/L BUN 29 H (7-17) mg/dL Glucose 67 L (74-99) mg/dL POC Glucose (mg/dL) (75-99) mg/dL Calcium 8.1 L (8.4-10.2) mg/dL Magnesium 1.5 L (1.6-2.3) mg/dL 05/14/17 Range/Units 07:22 WBC (3.8-10.6) k/uL Neutrophils # (1.3-7.7) k/uL Neutrophils # (Manual) (1.3-7.7) k/uL Lymphocytes # (1.0-4.8) k/uL PT (9.0-12.0) sec INR (<1.2) Sodium (137-145) mmol/L Chloride (98-107) mmol/L BUN (7-17) mg/dL Glucose (74-99) mg/dL POC Glucose (mg/dL) 106 H (75-99) mg/dL Calcium (8.4-10.2) mg/dL Magnesium (1.6-2.3) mg/dL Microbiology - Last 24 Hours (Table) 05/12/17 18:30 Blood Culture - Preliminary Blood No Growth after 24 hours 05/13/17 01:14 Urine Culture - Preliminary Urine,Catheterized Assessment and Plan Plan: Impression: 1 acute congestive heart failure, secondary to systolic dysfunction, and secondary to chronic atrial fibrillation. Her congestive heart failure is biventricular showing mostly left-sided and right-sided failure based on the presentation. 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 Patient is empirically on antibiotics. 5 history of chronic obstructive pulmonary disease, severity of which is not clear, this will need to be addressed on an outpatient basis. In the meantime we'll continue bronchodilators. 6 moderate pulmonary hypertension 7 chronic cor pulmonale Recommendation: I we'll continue the patient on the same treatment plan including diuretics, antibiotics empirically, blood cultures negative and urine culture is pending. Patient will remain in the ICU for today, may consider transferring the patient to a cardiac floor in the next 24 hours. Time with Patient: Less than 30
[2017-05-14] MEDS ORDERED: MAG HYDROX/AL HYDROX/SIMETH 30 ML, diphenhydrAMINE ELIXIR 75 MG, LIDOCAINE VISCOUS 30 ML PO PRN ×3 (12:27)
[2017-05-14 12:28] LABS: Glucose,Whole Blood 261 mg/dL (75-99)
[2017-05-14] MEDS: INSULIN LISPRO (humaLOG) 300 UNIT/3 ML VIAL SQ SCH ×2 (12:33→17:41)
[2017-05-14] MEDS: AMIODARONE 200 MG TAB PO SCH (12:33)
[2017-05-14 13:12] VITALS: RESP 21
[2017-05-14 14:56] VITALS: TEMP 98.6
[2017-05-14] MEDS: SYMBICORT 160-4.5 MCG INHALER INHALATION SCH (14:58)
[2017-05-14 16:22] LABS: Glucose,Whole Blood 124 mg/dL (75-99)
[2017-05-14 19:19] VITALS: BP 113/68; PULSE 86
[2017-05-14] MEDS ORDERED: DEXTROSE 50%-WATER 50 ML SYRINGE IVP ONE (21:53)
[2017-05-14] MEDS ORDERED: EPINEPHrine 10 ML SYRINGE (0.1 MG/ML) ONE (21:53)
[2017-05-14] MEDS ORDERED: SODIUM BICARB 8.4% 50 ML SYR (1 MEQ/ML) ONE (21:53)
--- NOTE | 2017-05-14 23:56 | P.PN ---
Subjective Principal diagnosis: CHF exacerbation This is an 82-year-old female with history of congestive heart failure and presumptive underlying cardiomyopathy, patient was recently admitted to [facility] with congestive heart failure discharged only couple of days ago. Patient was supposedly compliant with all her meds including diuretics, however she presented to the ER with worsening shortness of breath, dyspnea on exertion, significant swelling in lower extremities, no chest pain, no diaphoresis, no palpitations. Chest x-ray showed evidence of congestive heart failure questionable left lower lobe underlying infiltrate, patient was noted to have significantly elevated BNP level. Since admission the patient has been feeling better breathing a bit easier with IV diuretics and negative balance. Presently denies headaches, no blurred vision no dizziness. No chest pain, she has some cough, no wheezing, she is complaining of shortness of breath, no nausea no vomiting no abdominal pain no melena no hematemesis. No dysuria frequency or urgency. 8:1517 Patient is sitting on the chair comfortably still having underlying short of breath. Still having significant leg swelling. 2-D echo cardiac exam showed his ejection fraction 25 to percent. Severely dilated left atrium. Moderate to severe tricuspid regurgitation. An elevated right ventricular systolic pressures. No fever no chills. No worsening symptoms. Objective - Vital Signs Vital signs: Vital Signs Temp 98.6 F 05/14/17 14:50 Pulse 86 05/14/17 16:00 Resp 21 05/14/17 12:00 BP 113/68 05/14/17 16:00 Pulse Ox 94 L 05/14/17 16:00 Intake & Output 05/14/17 05/14/17 05/15/17 06:59 18:59 06:59 Intake Total 90 500 Output Total 1695 75 Balance -1605 425 Weight 65.7 kg Intake: IV 40 Sodium Chloride 0.9% 1, 40 000 ml @ 20 mls/hr IV . Q24H [facility] Rx#:[id number] Intake, IV Titration 50 20 Amount Piperacillin-Tazobactam 3 50 .375 gm In Dextrose/Water 1 50ml.bag @ 12.5 mls/hr IVPB Q8HR [facility] Rx#: [id number] Sodium Chloride 0.9% 1, 20 000 ml @ 20 mls/hr IV . Q24H [facility] Rx#:[id number] Oral 480 Output: Urine 1695 75 Other: Voiding Method Indwelling Catheter Indwelling Catheter - Exam PHYSICAL EXAMINATION: Patient is lying in the bed comfortably, no acute distress , awake alert and oriented.. HEENT: Normocephalic. Neck is supple. Pupils reactive. Nostrils clear. Oral cavity is moist. Ears reveal no drainage. Neck reveals no JVD, carotid bruits, or thyromegaly. CHEST EXAMINATION: Trachea is central. Symmetrical expansion. Bilateral crackles positive basally. No wheezing CARDIAC: Normal S1, S2 with no gallops. Irregularly irregular pulse. Systolic murmur positive ABDOMEN: Soft. Bowel sounds normal. No organomegaly. No abdominal bruits. Extremities 3+ bilateral pedal edema. No cyanosis Neurologically awake, alert, oriented x3 with well-coordinated movements. - Labs CBC & Chem 7: 05/14/17 04:31 05/14/17 06:30 Labs: Abnormal Lab Results - Last 24 Hours (Table) 05/14/17 05/14/17 05/14/17 Range/Units 04:31 04:31 04:31 WBC 13.7 H (3.8-10.6) k/uL Neutrophils # 12.1 H (1.3-7.7) k/uL Lymphocytes # 0.9 L (1.0-4.8) k/uL PT 34.6 H (9.0-12.0) sec INR 3.5 H (<1.2) Sodium (137-145) mmol/L Chloride (98-107) mmol/L BUN (7-17) mg/dL Glucose (74-99) mg/dL POC Glucose (mg/dL) (75-99) mg/dL Hemoglobin A1c 8.0 H (4.2-6.1) % Calcium (8.4-10.2) mg/dL Magnesium (1.6-2.3) mg/dL 05/14/17 05/14/17 05/14/17 Range/Units 06:30 07:22 12:26 WBC (3.8-10.6) k/uL Neutrophils # (1.3-7.7) k/uL Lymphocytes # (1.0-4.8) k/uL PT (9.0-12.0) sec INR (<1.2) Sodium 134 L (137-145) mmol/L Chloride 95 L (98-107) mmol/L BUN 29 H (7-17) mg/dL Glucose 67 L (74-99) mg/dL POC Glucose (mg/dL) 106 H 261 H (75-99) mg/dL Hemoglobin A1c (4.2-6.1) % Calcium 8.1 L (8.4-10.2) mg/dL Magnesium 1.5 L (1.6-2.3) mg/dL 05/14/17 Range/Units 16:20 WBC (3.8-10.6) k/uL Neutrophils # (1.3-7.7) k/uL Lymphocytes # (1.0-4.8) k/uL PT (9.0-12.0) sec INR (<1.2) Sodium (137-145) mmol/L Chloride (98-107) mmol/L BUN (7-17) mg/dL Glucose (74-99) mg/dL POC Glucose (mg/dL) 124 H (75-99) mg/dL Hemoglobin A1c (4.2-6.1) % Calcium (8.4-10.2) mg/dL Magnesium (1.6-2.3) mg/dL Microbiology - Last 24 Hours (Table) 05/12/17 18:30 Blood Culture - Preliminary Blood No Growth after 48 hours 05/13/17 01:14 Urine Culture - Final Urine,Catheterized Assessment and Plan Plan: 1 acute on chronic CHF with systolic and diastolic dysfunction ejection fraction 25%. Her congestive heart failure is biventricular showing mostly left -sided and right-sided failure based on the presentation 2 chronic atrial fibrillation. On anticoagulant with Coumadin. INR 3.3 3 history of type 2 diabetes 4 left lower lobe pneumonia with sepsis.. Possible hospital-acquired with admission to [facility] admitted for congestive heart failure recently. Patient is empirically on antibiotics. 5 history of chronic obstructive pulmonary disease 6 Hypervolemic hyponatremia with sodium level of 128 7 lactic acidosis. Improved with hydration bolus Plan: Patient will be continued on IV Lasix and breathing treatments and follow closely. 2-D echocardiogram was done. Cardiology and pulmonary is following this patient. Continue the Coumadin dosing. Prognosis is guarded..
[2017-05-15] MEDS ORDERED: FAMOTIDINE 20 MG TAB PO SCH (09:00)
--- NOTE | 2017-06-18 10:55 | CDI ---
In responding to this query, please exercise your independent professional judgment. The [facility] Coding Staff and Clinical Documentation Specialists appreciate your assistance in clarifying documentation, maintaining compliance with coding guidelines, accurately documenting patients condition and capturing severity of illness. The fact that a question is asked does not imply that any particular answer is desired or expected. Communication forms are a method of clarifying documentation and are not made part of the Legal Health Record. Thank you in advance for your clarification. Last Revision, July 2015 Denvervivian Perez [address] [facility] [place] [address] Documentation Clarification Form Date: 06/18/2017 10:42:00 AM From: Mallory Ernestine Phone: Admit Date: 05/12/2017 10:14:00 PM Patient Name: Abbi Monaco Visit Number: [id number] Discharge Date: Dr. Samia Horton Patient was admitted for acute on chronic systolic and diastolic congestive heart failure, pneumonia and sepsis. The patient was found unresponsive in chair at 18:23 on 05/14 with no pulse or respirations also found to have distended abdomen. Patient was intubated by Dr. Landaverde with blood coming from ET tube. Time of called at 18:47 on 05/14 In your professional opinion, can you please clarify the Preliminary Cause of for this patient? Other Unable to determine Please document in your progress notes and discharge summary in order to capture severity of illness and risk of mortality. Include clinical findings that support your diagnosis. FYI: Press F11 to launch patient chart. If you have a question about this query, please contact Brooklyn Ivory Director Of Child Welfare Services at [phone] between 8am and 5pm. JONES
--- NOTE | 2017-06-19 14:12 | P.DS ---
Providers Date of admission: 05/12/17 22:14 Expected date of discharge: 05/14/17 () Attending physician: Sherry Szymanski Consults: 05/12/17 20:46 Consult Physician Stat Consulting Provider: Laron Costa Consult Reason/Comments: Heart Failure Do you want consulting provider notified?: Yes, Notify in am 05/13/17 00:32 Consult Physician Stat Consulting Provider: Flaquita Pham Consult Reason/Comments: ICU management Do you want consulting provider notified?: Yes Primary care physician: Physician Nonstaff Hospital Course: Discharge/ diagnosis 1 acute on chronic CHF with systolic and diastolic dysfunction ejection fraction 25%. Her congestive heart failure is biventricular showing mostly left- sided and right-sided failure based on the presentation 2 chronic atrial fibrillation. On anticoagulant with Coumadin. INR 3.3 3 history of type 2 diabetes 4 left lower lobe pneumonia with sepsis.. Possible hospital-acquired with admission to [facility] admitted for congestive heart failure recently. Patient is empirically on antibiotics. 5 history of chronic obstructive pulmonary disease 6 Hypervolemic hyponatremia with sodium level of 128 7 severe lactic acidosis due to decreased tissue perfusion. Improved with hydration bolus. Hospital course: This is an 82-year-old female with history of congestive heart failure and presumptive underlying cardiomyopathy, patient was recently admitted to [facility] with congestive heart failure discharged only couple of days ago. Patient was supposedly compliant with all her meds including diuretics, however she presented to the ER with worsening shortness of breath, dyspnea on exertion, significant swelling in lower extremities, no chest pain, no diaphoresis, no palpitations. Chest x-ray showed evidence of congestive heart failure questionable left lower lobe underlying infiltrate, patient was noted to have significantly elevated BNP level. Since admission the patient has been feeling better breathing a bit easier with IV diuretics and negative balance. Presently denies headaches, no blurred vision no dizziness. No chest pain, she has some cough, no wheezing, she is complaining of shortness of breath, no nausea no vomiting no abdominal pain no melena no hematemesis. No dysuria frequency or urgency. 8:1517 Patient is sitting on the chair comfortably still having underlying short of breath. Still having significant leg swelling. 2-D echo cardiac exam showed his ejection fraction 25 to percent. Severely dilated left atrium. Moderate to severe tricuspid regurgitation. An elevated right ventricular systolic pressures. No fever no chills. No worsening symptoms. Today evening patient was unresponsive and pulseless. CODE BLUE was called. Patient underwent CPR but could not be fully resuscitated. Patient at 1630. Family has been notified. Plan - Discharge Summary New Discharge Prescriptions: No Action Warfarin [Coumadin] 2.5 mg PO DAILY PARoxetine [Paxil] 20 mg PO DAILY Losartan [Cozaar] 12.5 mg PO HS Levothyroxine Sodium [Synthroid] 50 mcg PO DAILY Insulin Lispro [humaLOG Kwikpen] See Protocol SQ HS Insulin Glargine,Hum.rec.anlog [Lantus Solostar] 16 unit SQ HS Insulin Lispro [humaLOG Kwikpen] See Protocol SQ AC-TID Furosemide [Lasix] 60 mg PO BID Docusate [Colace] 100 mg PO BID Fluticasone/Vilanterol [Breo Ellipta 200-25 Mcg INH] 1 puff INHALATION RT- DAILY Amiodarone [Cordarone] 200 mg PO Q12H Discharge Medication List Amiodarone [Cordarone] 200 mg PO Q12H 05/12/17 [History] Docusate [Colace] 100 mg PO BID 05/12/17 [History] Fluticasone/Vilanterol [Breo Ellipta 200-25 Mcg INH] 1 puff INHALATION RT-DAILY 05/12/17 [History] Furosemide [Lasix] 60 mg PO BID 05/12/17 [History] Insulin Glargine,Hum.rec.anlog [Lantus Solostar] 16 unit SQ HS 05/12/17 [History ] Insulin Lispro [humaLOG Kwikpen] See Protocol SQ AC-TID 05/12/17 [History] Insulin Lispro [humaLOG Kwikpen] See Protocol SQ HS 05/12/17 [History] Levothyroxine Sodium [Synthroid] 50 mcg PO DAILY 05/12/17 [History] Losartan [Cozaar] 12.5 mg PO HS 05/12/17 [History] PARoxetine [Paxil] 20 mg PO DAILY 05/12/17 [History] Warfarin [Coumadin] 2.5 mg PO DAILY 05/12/17 [History] Follow up Appointment(s)/Referral(s): Nonstaff,Physician [Primary Care Provider] - 1-2 days Discharge Disposition: - Preliminary Cause of Preliminary Cause of : acute on chronic CHF with systolic and diastolic dysfunction
== END 2017-05-14 21:41 | disposition expired | DRG 871 ==
LOC: EC 18:04 → 6ICU 22:14 → 6SEL 05-14 13:02
PROVIDERS: ADMIT Hospitalist; ATTEND Hospitalist
PROC: 5A09357 Assistance with Respiratory Ventilation, Less than 24 Consecutive Hours, Continuous Positive Airway Pressure (ICD-10-PCS; principal; 2017-05-13)
DX: A41.9 Sepsis, unspecified organism (principal); J18.9 Pneumonia, unspecified organism; I50.43 Acute on chronic combined systolic (congestive) and diastolic (congestive) heart failure; J44.0 Chronic obstructive pulmonary disease with (acute) lower respiratory infection; E87.2 Acidosis; I48.2 Chronic atrial fibrillation; I42.9 Cardiomyopathy, unspecified; E87.1 Hypo-osmolality and hyponatremia; E86.0 Dehydration; I27.2 Other secondary pulmonary hypertension; E11.9 Type 2 diabetes mellitus without complications; I08.1 Rheumatic disorders of both mitral and tricuspid valves; F41.9 Anxiety disorder, unspecified; I45.9 Conduction disorder, unspecified; I27.81 Cor pulmonale (chronic); Z79.4 Long term (current) use of insulin; Z79.01 Long term (current) use of anticoagulants; Z79.899 Other long term (current) drug therapy; Y95 Nosocomial condition
CPT/HCPCS: 36415; 36600; 71010; 71020; 80048; 80053; 80202; 81001; 82550; 82553; 82805; 83036; 83605; 83735; 83880; 84100; 84484; 85025; 85610; 85730; 87040; 87086; 93005; 93306; 94640; 94660; 94760; 96365; 96366; 96375; 99285